=== PATIENT | male | born 1980 | race Caucasian/White ===

== ENCOUNTER 2016-12-01 11:03 | Emergency (ER) | payer OTHER ==
[2016-12-01 10:37] LABS: BASOPHIL 0.9 % (0-2); EOSINOPHIL 2.6 % (0-5); HCT 46.4 % (42.0-52.0); HGB 16.3 g/dl (13.2-18.0); LYMPHOCYTE 34.9 % (15-48); MCH 30.3 pg (25.0-31.0); MCHC 35.1 g/dL (32.0-36.0); MCV 86.2 fL (78.0-100.0); MONOCYTE 6.6 % (0-12); MPV 9.5 fL (6.0-9.5); PLT 337 K/uL (150-400); RBC 5.38 M/uL (4.70-6.00); RDW 12.7 % (11.5-14.0); WBC 5.3 K/uL (4.0-10.5)
[2016-12-01 10:56] LABS: ALBUMIN 4.9 g/dL (3.5-5.0); BILIRUBIN - TOTAL 0.6 mg/dL (0.1-1.0); CREATININE 1.3 mg/dL (0.7-1.2); GLOBULIN (CALCULATION) 2.8 g/dL (2.2-4.2); MAGNESIUM 1.91 mg/dL (1.40-2.10); POTASSIUM 3.9 mmol/L (3.5-5.1); TOTAL PROTEIN 7.7 g/dL (6.4-8.3)
[2016-12-01 10:58] LABS: CKMB 2.54 ng/mL (0.97-4.94); MYOGLOBIN 64 ng/mL (26-65); PRO-BNP 50 pg/mL (0-125); TROPONIN T < 0.010 ng/mL
[2016-12-01 11:00] LABS: INR 1.04 (0.9-1.2); PROTHROMBIN TIME 13.2 SECONDS (11.7-14.0)
== END 2016-12-01 14:20 | disposition home or self-care (01) ==
LOC: FER 11:03
PROVIDERS: Emergency Medicine
DX: R07.89 Other chest pain (principal); I10 Essential (primary) hypertension; Z79.899 Other long term (current) drug therapy
CPT/HCPCS: 36415; 71010; 80053; 82550; 82553; 83735; 83874; 83880; 84484; 85025; 85610; 85730; 93005; J1885